=== PATIENT | male | born 1985 | race Caucasian/White ===

== ENCOUNTER 2020-01-31 15:04 | Outpatient (REF) | payer OTHER, SELFPAY | END 2020-01-31 15:05 | disposition home or self-care (01) | LOC: HO.LAB 15:04 | PROVIDERS: Visit Provider Internal Medicine | DX: Z20.828 Contact with and (suspected) exposure to other viral communicable diseases (principal) | CPT/HCPCS: C9803; U0003 ==

== ENCOUNTER 2020-10-26 13:38 | Emergency (ER) | payer OTHER, SELFPAY ==
--- NOTE | 2020-10-26 | ECG_ITS ---
Test Reason : CHEST PAIN Blood Pressure : / mmHG Vent. Rate : 086 BPM Atrial Rate : 086 BPM P-R Int : 140 ms QRS Dur : 090 ms QT Int : 474 ms P-R-T Axes : 087 090 076 degrees QTc Int : 567 ms Normal sinus rhythm Biatrial enlargement Rightward axis Pulmonary disease pattern Nonspecific ST abnormality Prolonged QT Abnormal ECG No previous ECGs available Referred By: Generic ED Physician Electronically Signed By:GERRI GARCIA MD
--- NOTE | ~2020-10-26 | XR_ITS ---
EXAMINATION: XR LUMBOSACRAL SPINE CLINICAL INFORMATION: Low back pain. COMPARISON: None TECHNIQUE: Three views of the lumbosacral spine. FINDINGS: There is normal lumbar lordosis. The vertebral heights, alignment are normal. Mild loss of L5-S1 disc height seen. Rest the disc heights are normal. No fracture, lytic or sclerotic process seen. L5 spina bifida changes noted. SI joints are symmetrical. XR/XR lumbar spine 2-3V IMPRESSION: Mild degenerative disc changes L5-S1 disc level. No visible acute fracture or dislocation seen.
[2020-10-26 13:49] VITALS: BP 126/79; PULSE 85; O2SAT 100
[2020-10-26 13:58] VITALS: BP 121/92; PULSE 87; RESP 20; TEMP 36.9; O2SAT 94; BMI 24.2
--- NOTE | 2020-10-26 15:01 | PC.NURSE ---
about 20 minutes ago patient came to triage asking how long his wait was and requesting a blanket, pt given a blanket. patient just returned to triage complaining of chest pain and stated he needed to be brought right back. this nurse ordered an ekg to be performed- per ems patient left [facility] yesterday angry over a long wait- there is currently a 5+ hour wait in this ED.
--- NOTE | 2020-10-26 16:19 | ED_ITS ---
HPI - General Adult General Chief complaint: General Medical Stated complaint: N/V [id number], LEFT [facility] YESTERDAY Time Seen by Provider: 10/26/20 15:32 History of Present Illness HPI narrative: 34-year-old male with a history of substance abuse. Patient's uses heroin. Last use was yesterday. Patient went to [facility] because he was having withdrawal symptoms. Feels nauseous vomiting. Achy all over. Patient injects his heroin. Complaining of pain to his back. There is no bowel urinary incontinence. There is no radiation. Patient from home. The pain in his back is been chronic. Denies any fever chills. No cough no congestion or upper respiratory symptoms. No diaphoresis. Patient from the street. Related Data Allergies Allergy/AdvReac Type Severity Reaction Status Date / Time No Known Allergies Allergy Verified 10/26/20 16:15 Review of Systems Review of Systems: Positive generalized ache Positive nausea vomiting Yes all other systems are reviewed and are negative PMFSH Past Medical History Attestation statement: The following information was validated with the patient. Medical History Heroin abuse HIV (human immunodeficiency virus infection) Social History Social History Advance Directives: No Advance Directives Information Provided: Yes Physical Exam Vital Signs: Vital Signs: Last Vital Signs Temp 98.4 F 10/26/20 13:58 Pulse 88 10/26/20 16:49 Resp 20 10/26/20 13:58 BP 147/74 H 10/26/20 16:49 Pulse Ox 94 10/26/20 13:58 Body Mass Index 24.2 Appearance: Alert. Oriented X3. No acute distress. Eyes: Pupils equal, round and reactive to light. ENT: Pharynx normal. Neck: Normal inspection. Neck supple. No lymph nodes noted. No crepitus CVS: Normal heart rate and rhythm. Pulses normal. Normal S1 and S2 Respiratory: No respiratory distress. Breath sounds normal. No Wheezing. No rales Abdomen: Soft and nontender. No rigidity. No distention. good BS x4 Skin: Skin warm and dry. Normal skin color. Normal skin turgor. Spine there is no spinal tenderness elicited on palpation. Extremities: No lower extremity edema. Neurovascular intact to all extremities. No Lacerations. No Rash. Sensation in lower extremity intact. Ambulate without any difficulties. Neuro: Oriented X 3. No motor deficit. No sensory deficit. Moving all extermities. No slurred speech Medical Decision Making MDM Narrative Medical decision making narrative: Patient's sed rate is less than 10. No evidence for spinal abscess. X-ray did not show any acute fractures. Patient's creatinine was 2.5. No history of labs here at [facility] for the last 5 years. Last lab was approximately 2009 at that time the kidney function is normal. Attempted to get the labs from [facility] with patient normally goes. They did not have any labs either. Explained to patient the need for follow-up for this creatinine as he does not want to stay. He has to attend to his family matters. Patient told to stop using recreational drugs. He was sent with him a prescription for Zofran. He was told his follow-up closely. Case was also discussed with substance abuse counselor. They will wear more trying to make plans for him. Patient is leaving against medical advice. Understood the risk including kidney failure. Including dehydration. Patient refused additional fluid at this time. Lab Data Result diagrams: 10/26/20 16:43 10/26/20 18:09 Labs: Lab Results 10/26/20 10/26/20 10/26/20 Range/Units 16:43 16:43 18:09 WBC 12.2 H (4.8-10.8) X10*3/uL RBC 5.42 (4.60-5.80) X10*6/uL Hgb 16.6 (14.0-18.0) g/dl Hct 47.3 (42-52) % MCV 87.3 (80-98) fL MCH 30.6 (27.0-33.0) pg MCHC 35.1 (31.0-36.0) g/dl RDW 11.6 (11.0-16.0) % Plt Count 313 (160-400) X10*3/uL MPV 10.3 (9.4-12.4) fL Immature Gran % (Auto) 0.6 H (0.0-0.4) % Neut % (Auto) 78.1 H (45-73) % Lymph % (Auto) 8.8 L (20-40) % [place] % (Auto) 12.2 H (2-11) % Eos % (Auto) 0.1 (0-4) % Baso % (Auto) 0.2 (0-2) % Lymph # (Auto) 1.1 L (1.2-4.9) X10*3/uL [place] # (Auto) 1.5 H (0.1-1.2) X10*3/uL Eos # (Auto) 0.0 (0.0-0.4) X10*3/uL Baso # (Auto) 0.0 (0.0-0.2) X10*3/uL Abs Immat Gran (auto) 0.07 H (0.00-0.03) X10*3/uL Absolute Neuts (auto) 9.5 H (2.0-8.3) X10*3/uL Absolute Nucleated RBC 0.000 (0.0-0.012) X10*3/uL Nucleated RBC % (auto) 0.0 (0.0-0.2) /100WBC ESR 9 (0-15) MM/HR Sodium 135 (135-145) mmol/L Potassium 3.1 L (3.3-5.1) mmol/L Chloride 82 L (96-108) mmol/L Carbon Dioxide 38 H (22-29) mmol/L Anion Gap 18 (12-20) BUN 45 H (9-16) mg/dL Creatinine 2.30 H (0.5-1.4) mg/dL Estim Creat Clear Calc 40.4 Estimated GFR 33 Random Glucose 120 H (60-115) mg/dL Calcium 10.3 H (8.4-10.2) mg/dL Urine Opiates Screen (Not Detect) Ur Barbiturates Screen (Not Detect) Ur Phencyclidine Scrn (Not Detect) Ur Amphetamines Screen (Not Detect) U Benzodiazepines Scrn (Not Detect) Urine Cocaine Screen (Not Detect) U Marijuana (THC) Screen (Not Detect) 10/26/20 Range/Units 18:09 WBC (4.8-10.8) X10*3/uL RBC (4.60-5.80) X10*6/uL Hgb (14.0-18.0) g/dl Hct (42-52) % MCV (80-98) fL MCH (27.0-33.0) pg MCHC (31.0-36.0) g/dl RDW (11.0-16.0) % Plt Count (160-400) X10*3/uL MPV (9.4-12.4) fL Immature Gran % (Auto) (0.0-0.4) % Neut % (Auto) (45-73) % Lymph % (Auto) (20-40) % [place] % (Auto) (2-11) % Eos % (Auto) (0-4) % Baso % (Auto) (0-2) % Lymph # (Auto) (1.2-4.9) X10*3/uL [place] # (Auto) (0.1-1.2) X10*3/uL Eos # (Auto) (0.0-0.4) X10*3/uL Baso # (Auto) (0.0-0.2) X10*3/uL Abs Immat Gran (auto) (0.00-0.03) X10*3/uL Absolute Neuts (auto) (2.0-8.3) X10*3/uL Absolute Nucleated RBC (0.0-0.012) X10*3/uL Nucleated RBC % (auto) (0.0-0.2) /100WBC ESR (0-15) MM/HR Sodium (135-145) mmol/L Potassium (3.3-5.1) mmol/L Chloride (96-108) mmol/L Carbon Dioxide (22-29) mmol/L Anion Gap (12-20) BUN (9-16) mg/dL Creatinine (0.5-1.4) mg/dL Estim Creat Clear Calc Estimated GFR Random Glucose (60-115) mg/dL Calcium (8.4-10.2) mg/dL Urine Opiates Screen Not Detected (Not Detect) Ur Barbiturates Screen Not Detected (Not Detect) Ur Phencyclidine Scrn Not Detected (Not Detect) Ur Amphetamines Screen Not Detected (Not Detect) U Benzodiazepines Scrn Not Detected (Not Detect) Urine Cocaine Screen POSITIVE H (Not Detect) U Marijuana (THC) Screen POSITIVE H (Not Detect) Discharge Plan Discharge Clinical Impression: Dehydration, Opioid abuse, Back pain Patient Disposition: Left Against Medical Advice Instructions: Opioid Use Disorder (ED), Dehydration (ED), Back Pain (ED), Against Medical Advice (ED) Referrals: Physician,Unknown [Primary Care Provider] - 2 days (We do not know why your kidney function is low. This could be secondary to dehydration or other reasons. Please drink lot of fluids. Please closely follow-up with your doctor. If you change your mind please come back to the emergency department.) Stand Alone Forms: Against Medical Advice, Substance Abuse Outpt Detox
[2020-10-26] MEDS: ondansetron HCL 4 MG/2 ML VIAL IVPUSH (16:48)
[2020-10-26 16:49] VITALS: BP 147/74; PULSE 88
[2020-10-26] MEDS: cloNIDine HCL 0.1 MG TABLET PO (16:49)
[2020-10-26] MEDS: Ibuprofen 400 MG TABLET PO (16:49)
[2020-10-26 16:50] LABS: MANUAL DIFF FLAG NO
[2020-10-26 17:01] LABS: Basophils Percent Auto 0.2 % (0-2); Eosinophils Percent Auto 0.1 % (0-4); Hematocrit 47.3 % (42-52); Hemoglobin 16.6 g/dl (14.0-18.0); Imm Gran Abs Auto 0.07 X10*3/uL (0.00-0.03); Imm Gran Pct Auto 0.6 % (0.0-0.4); Lymphocytes Absolute Auto 1.1 X10*3/uL (1.2-4.9); Lymphocytes Percent Auto 8.8 % (20-40); Mean Corpuscular HGB Conc 35.1 g/dl (31.0-36.0); Mean Corpuscular Hemoglobin 30.6 pg (27.0-33.0); Mean Corpuscular Volume 87.3 fL (80-98); Mean Platelet Volume 10.3 fL (9.4-12.4); Monocytes Absolute Auto 1.5 X10*3/uL (0.1-1.2); Monocytes Percent Auto 12.2 % (2-11); Neutrophils Absolute Auto 9.5 X10*3/uL (2.0-8.3); Neutrophils Percent Auto 78.1 % (45-73); Platelet Count 313 X10*3/uL (160-400); Red Blood Count 5.42 X10*6/uL (4.60-5.80); Red Cell Distribution Width 11.6 % (11.0-16.0); White Blood Count 12.2 X10*3/uL (4.8-10.8)
--- NOTE | 2020-10-26 17:01 | MHC.RECOVSUP ---
Recovery Support note: Patient is a 34 year old Italian speaking male who presented to [facility] ED due to withdrawal. This writer technical publications met with patient to discuss his substance use and treatment options. Patient reports significant withdrawal symptoms and appears to be uncomfortable, unable to remain still. Patient reports he is interested in getting started on Suboxone, however his last use was at 9AM. Explained to patient that we are unable to provide him with Suboxone due to the risk of precipitated withdrawal. Patient acknowledged. Patient accepted information on the [facility] and other MAT clinics in the area. Discussed case with patient's ED provider. Plan for patient to receive comfort medications and to present as a walk-in at the [facility] tomorrow. Patient reports no questions or concerns regarding this plan.
[2020-10-26 18:22] LABS: Erythrocyte Sedimentation Rate 9 MM/HR (0-15)
[2020-10-26 18:33] LABS: Anion Gap 18 (12-20); Blood Urea Nitrogen 45 mg/dL (9-16); Calcium 10.3 mg/dL (8.4-10.2); Carbon Dioxide 38 mmol/L (22-29); Chloride 82 mmol/L (96-108); Creatinine Clr Calc Pharmacy 40.4; Estimated Glomerular Filt Rate 33; Glucose Random 120 mg/dL (60-115); Potassium 3.1 mmol/L (3.3-5.1); Sodium 135 mmol/L (135-145)
--- NOTE | 2020-10-26 18:42 | PC.NURSE ---
Pt actively moving around the bed in different positions unable to sit still r/.t discomfort. Pt given clonadine but used at 0900 and cannot give suboxone yet at this time per protocol. Pt is aware of this. Motrin given for generalized pain. Pt is cooperative and re-directable. NS infusion not given due to concerns with safety r/t inability for pt to remain still and in the bed.
[2020-10-26 19:08] LABS: Amphetamine Screen Urine Not Detected (Not Detect); Barbiturates, Urine Not Detected (Not Detect); Benzodiazepines Screen Urine Not Detected (Not Detect); Cannabinoid Screen Urine POSITIVE (Not Detect); Cocaine Screen Urine POSITIVE (Not Detect); Opiate Screen Urine Not Detected (Not Detect); Phencyclidine Screen Urine Not Detected (Not Detect)
== END 2020-10-26 22:06 | disposition left against medical advice (07) ==
PROVIDERS: Emergency Provider Emergency Medicine Emergency Medical Services
DX: F11.13 Opioid abuse with withdrawal (principal); E86.0 Dehydration; Z71.51 Drug abuse counseling and surveillance of drug abuser; Z21 Asymptomatic human immunodeficiency virus [HIV] infection status; Z79.899 Other long term (current) drug therapy
CPT/HCPCS: 36415; 72100; 80048; 80307; 85025; 85652; 93005; 96360; 96361; 99284; J2405

== ENCOUNTER → 2024-08-09 11:01 | Outpatient (BNVA) | payer OTHER, SELFPAY | PROVIDERS: Visit Provider Internal Medicine | DX: M53.3 Sacrococcygeal disorders, not elsewhere classified (principal); Z02.79 Encounter for issue of other medical certificate | CPT/HCPCS: 99202 ==